=== PATIENT | male | born 1985 | race Caucasian/White ===

== ENCOUNTER 2017-01-31 12:21 | Emergency (ER) | payer OTHER ==
[~2017-01-31] VITALS: Ht 172.7 cm; Wt 111.5 kg
[2017-01-31 12:27] VITALS: Ht 172.7 cm; Wt 111.5 kg
[2017-01-31] MEDS ORDERED: OLAN10TA7 PO (12:45)
--- NOTE | 2017-01-31 12:48 | ERD ---
ER Documentation Chief Complaint Date/Time DATE: 01/31/17 TIME: 12:46 Chief Complaint hearing voices, paranoid "i feel like everyone is watching me" HPI 31-year-old male presents to the emergency department complaining of hallucinations. He states he has been on and off methamphetamine. His last use was approximately 10 days ago. He has been in and out of senior living. He denies suicidal or homicidal thoughts but continues to have paranoid delusions. He recognizes them as paranoid delusions. He has no medical complaints at this time. ROS All systems reviewed and are negative except as per history of present illness. Medications Home Meds Active Scripts Olanzapine* (Zyprexa*) 10 Mg Tablet, 10 MG PO DAILY, #30 TAB Prov:MERLIN HENSLEY 01/31/17 Allergies Allergies: Coded Allergies: No Known Allergy (Unverified , 01/31/17) FmHx No history of psychiatric disease Physical Exam Vitals Vital Signs Date Time Temp Pulse Resp B/P Pulse Ox O2 Delivery O2 Flow Rate FiO2 01/31/17 12:27 98.5 74 18 122/68 98 Physical Exam General: well developed, well nourished, in no distress. Neuro: Normal speech, gait, balance Psych: Patient is awake, alert, oriented. Patient has normal insight, and some judgment. Patient is expressing paranoid delusions, and auditory hallucinations , but no visual hallucinations. Patient denies suicidal or homicidal thoughts at this time. He has a linear thought process. Procedures/MDM Patient was taken to a room, seen and examined Medical decision makin-year-old male presents with what appears to be a psychosis comp located by ongoing drug use. At this time, patient shows no evidence of being admitted danger to himself or others. He has been offered voluntary psychiatric hospitalization and outpatient follow-up and seems appropriate for outpatient care at this time. Departure Diagnosis: Primary Impression: Psychosis Condition: Stable Patient Instructions: Psychosis Additional Instructions: Please follow up with the mental health urgent care center in [place] next to the [facility] MERLIN HENSLEY January 31, 2017 12:48
[2017-01-31] MEDS ORDERED: OLANZAPINE 5 MG TAB PO ONE (13:00)
== END 2017-01-31 13:27 | disposition home or self-care (01) ==
LOC: E/R 12:21
DX: F29 Unspecified psychosis not due to a substance or known physiological condition (principal)
CPT/HCPCS: Z7502; Z7610; 99283

== ENCOUNTER 2017-04-23 11:49 | Emergency (ER) | payer OTHER ==
[~2017-04-23] VITALS: Ht 188 cm; Wt 114.0 kg
[~2017-04-23 11:49] MED LIST: OLAN10TA7 PO
[2017-04-23 11:52] VITALS: Ht 188 cm; Wt 114.0 kg
[2017-04-23] MEDS ORDERED: IBUP-1542 PO (13:08)
--- NOTE | 2017-04-23 13:30 | ERD ---
ER Documentation Chief Complaint Date/Time DATE: 04/23/17 TIME: 13:28 Chief Complaint sore on lip and back of mouth for past 5 days HPI This is a 32-year-old male presents to the ER after he had some dental work on Tuesday he developed a sore on the right side of his inner cheek and the tip of his tongue. Patient states that the sores are painful. He denies any fevers or chills. He denies any dental pain. ROS 12 point review of systems was done, all negative except per HPI. Medications Home Meds Active Scripts Ibuprofen* (Motrin*) 600 Mg Tab, 600 MG PO Q6, #30 TAB Prov:NAZANINTARA Audrey 04/23/17 Olanzapine* (Zyprexa*) 10 Mg Tablet, 10 MG PO DAILY, #30 TAB Prov:MERLIN HENSLEY 01/31/17 Allergies Allergies: Coded Allergies: No Known Allergy (Unverified , 01/31/17) PMhx/Soc Medical and Surgical Hx: pt denies Medical Hx History of Surgery: Yes (CHOLECYSTECTOMY) Anesthesia Reaction: No Hx Neurological Disorder: No Hx Respiratory Disorders: No Hx Cardiac Disorders: No Hx Psychiatric Problems: Yes (HALLUCINATING, PARANOID) Hx Miscellaneous Medical Probl: No Hx Alcohol Use: No Hx Substance Use: No Hx Tobacco Use: No Smoking Status: Never smoker Physical Exam Vitals Vital Signs Date Time Temp Pulse Resp B/P Pulse Ox O2 Delivery O2 Flow Rate FiO2 04/23/17 11:52 97.0 73 18 125/72 98 Physical Exam GENERAL: The patient is well developed and appropriate for usual state of health , in no apparent distress. HEENT: Atraumatic. 2 aphthous ulcers in the mouth. CHEST: Clear to auscultation bilaterally. There are no rales, wheezes or rhonchi. HEART: Regular rate and rhythm. No murmurs, clicks, rubs or gallops. NEURO: Alert and oriented. Procedures/MDM This is a 32-year-old male presents to the ER with 2 sores in his mouth. Likely at this ulcers secondary to trauma that occurred when he had dental work. At this time patient is afebrile and well-appearing. I doubt infection, cellulitis, dental abscess, Lars's angina. Patient needs to follow-up with his primary care doctor within 1-2 days or return to ER sooner if symptoms worsen. My medical decision making was shared with the patient he understands and agrees with plan. Departure Diagnosis: Primary Impression: Sore in mouth Condition: Stable Patient Instructions: Aphthous Ulcer Referrals: [facility] (PCP) Additional Instructions: Call your primary care doctor TOMORROW for an appointment during the next 1-2 days.See the doctor sooner or return here if your condition worsens before your appointment time. TARA BACK Apr 23, 2017 13:30
== END 2017-04-23 13:20 | disposition home or self-care (01) ==
LOC: FTE 11:49
DX: K13.79 Other lesions of oral mucosa (principal)
CPT/HCPCS: 99283

== ENCOUNTER 2017-06-20 10:21 | Emergency (ER) | payer OTHER ==
[~2017-06-20] VITALS: Ht 175.3 cm; Wt 89.0 kg
[~2017-06-20 10:21] MED LIST changes: +IBUP-1542 PO
[2017-06-20 10:27] VITALS: Ht 175.3 cm; Wt 89.0 kg
--- NOTE | 2017-06-20 13:11 | ERD ---
ER Documentation Chief Complaint Date/Time DATE: 06/20/17 TIME: 13:08 Chief Complaint REFILL OF PSYCH MEDS, HX SCHIZOPHRENIA? HPI 32-year-old male with history of schizophrenia paranoid type, presents to the emergency department requesting a refill of his Risperdal. The patient has established mental health but his appointment is in 2 weeks. At this time he presents with his girlfriend and both denied current suicidal ideation or homicidal ideation. He status that occasionally he gets visual and auditory hallucinations but he is able to control the situation. Refers good compliance with medications no major side effects ROS All systems reviewed and are negative except as per history of present illness. Medications Home Meds Active Scripts Hydroxyzine Hcl* (Hydroxyzine Hcl*) 25 Mg Tablet, 25 MG PO QHS Y for INSOMNIA, # 30 TAB 3 Refills Prov:JESÚS DRAKE MD 06/20/17 Risperidone* (Risperdal*) 1 Mg Tablet, 1 MG PO BID for 30 Days, #60 TAB 2 Refills Prov:JESÚS DRAKE MD 06/20/17 Ibuprofen* (Motrin*) 600 Mg Tab, 600 MG PO Q6, #30 TAB Prov:TARA BACK 04/23/17 Olanzapine* (Zyprexa*) 10 Mg Tablet, 10 MG PO DAILY, #30 TAB Prov:MERLIN HENSLEY 01/31/17 Allergies Allergies: Coded Allergies: No Known Allergy (Unverified , 01/31/17) PMhx/Soc History of cholecystectomy. History of voluntary psych admissions. History of Surgery: Yes (CHOLECYSTECTOMY) Anesthesia Reaction: No Hx Neurological Disorder: No Hx Respiratory Disorders: No Hx Cardiac Disorders: No Hx Psychiatric Problems: Yes (HALLUCINATING, PARANOID) Hx Miscellaneous Medical Probl: No Hx Alcohol Use: No Hx Substance Use: No Hx Tobacco Use: No Smoking Status: Never smoker FmHx The patient denies history of mental health problems in his family Physical Exam Vitals Vital Signs Date Time Temp Pulse Resp B/P Pulse Ox O2 Delivery O2 Flow Rate FiO2 06/20/17 10:27 98.1 73 18 137/70 99 Physical Exam Const: [] Head: Atraumatic Resp: Clear to auscultation bilaterally Cardio: Regular rate and rhythm, no murmurs Neur: Awake and alert Psych: Normal Mood and Affect NO SI/HI Procedures/MDM Medical decision making: This is a 32-year-old patient with a history of schizophrenia, on mental health management and currently taking Risperdal, refers feeling okay his next appointment is in 2 weeks, he needs a refill for his medications. At this time no suicidal or homicidal ideation. We recommend a follow-up appointment in 2-4 days Departure Diagnosis: Primary Impression: Schizo-affective type schizophrenia, chronic state Condition: Stable JESÚS DRAKE MD Jun 20, 2017 13:11
[2017-06-20] MEDS ORDERED: RIS1 PO (13:14)
[2017-06-20] MEDS ORDERED: HYDR-3011 PO (13:14)
[2017-06-20 13:57] VITALS: BP 130/71; PULSE 79; RESP 18; TEMP 98.5
== END 2017-06-20 13:58 | disposition home or self-care (01) ==
LOC: FTE 10:21
DX: F25.9 Schizoaffective disorder, unspecified (principal)
CPT/HCPCS: 99281

== ENCOUNTER 2019-03-22 19:33 | Emergency (ER) | payer OTHER ==
[~2019-03-22] VITALS: Ht 188 cm; Wt 125.0 kg
[~2019-03-22 19:33] MED LIST changes: +HYDR-843 PO; +RISP-7 PO
[2019-03-22 19:43] VITALS: BP 130/64; PULSE 74; RESP 18; Ht 188 cm; Wt 125.0 kg
--- NOTE | 2019-03-22 19:52 | ERD ---
ER Documentation Chief Complaint Chief Complaint rash/possible insect bites to right lower leg x 4 days HPI 34-year-old male, with a history of his schizophrenia, presents emergency department, complaining of bilateral lower extremity insect bites for 4 days, after spending some time outdoor. The patient denies fever, no chills, no local erythema, warmth or tenderness. ROS All systems reviewed and are negative except as per history of present illness. Medications Home Meds Active Scripts Cetirizine Hcl* (Zyrtec*) 10 Mg Capsule, 10 MG PO DAILY, #10 TAB.CHEW Prov:JESÚS DRAKE MD 03/22/19 Triamcinolone Acetonide (Triamcinolone Acetonide) 0.5% - 15 Gm Oint..gm., 1 APPLIC TOP BID for 7 Days, #1 TUB Prov:JESÚS DRAKE MD 03/22/19 Hydroxyzine Hcl* (Hydroxyzine Hcl*) 25 Mg Tablet, 25 MG PO QHS PRN for INSOMNIA, #30 TAB 3 Refills Prov:JESÚS DRAKE MD 06/20/17 Risperidone* (Risperdal*) 1 Mg Tablet, 1 MG PO BID for 30 Days, #60 TAB 2 Refills Prov:JESÚS DRAKE MD 06/20/17 Ibuprofen* (Motrin*) 600 Mg Tab, 600 MG PO Q6, #30 TAB Prov:TARA BACK 04/23/17 Olanzapine* (Zyprexa*) 10 Mg Tablet, 10 MG PO DAILY, #30 TAB Prov:MERLIN HENSLEY 01/31/17 Allergies Allergies: Coded Allergies: No Known Allergy (Unverified , 01/31/17) PMhx/Soc History of Surgery: Yes (CHOLECYSTECTOMY) Anesthesia Reaction: No Hx Neurological Disorder: No Hx Respiratory Disorders: No Hx Cardiac Disorders: No Hx Psychiatric Problems: Yes (HALLUCINATING, PARANOID) Hx Miscellaneous Medical Probl: No Hx Alcohol Use: No Hx Substance Use: No Hx Tobacco Use: No FmHx Family History: No diabetes, No coronary disease Physical Exam Vitals Vital Signs Date Temp Pulse Resp B/P (MAP) Pulse Ox O2 O2 Flow FiO2 Time Delivery Rate 03/22/19 98.6 74 18 130/64 98 19:43 (86) Physical Exam Patient alert, oriented, vital signs stable. HEAD: Normocephalic, atraumatic. EYES: PERRLA, EOMI, Sclera and conjunctiva appear normal. NOSE: Clear and patent nostrils. EARS: Canals clear, tympanic membranes WNL. MOUTH: normal lips and tongue, no oral lesions. THROAT: Normal oropharynx, no tonsillar exudates. NECK: Supple, No lymphadenopathy. Full ROM without pain or tenderness. HEART: RRR, no rubs, murmurs, clicks or gallops. LUNGS: Clear to auscultation. ABDOMEN: Soft, non-tender without masses or hepatosplenomegaly. EXTREMITIES: Multiple, well-defined, erythematous papules, bilaterally, without signs of infection. No edema bilaterally. BACK: Full ROM, no deformity, normal back exam NEURO: Cranial nerves grossly intact, no motor or sensory deficit SKIN: No rashes, no petechia. Procedures/MDM Vital signs stable, Differential diagnosis include but not limited to: Dermatitis, scabies, allergic reaction, cellulitis, erysipelas, shingles, abscess. Low suspicion for acute systemic infectious process. Physical examination and clinical presentation consistent most likely with insect bites without evidence of cellulitis or abscess formation. During the ED course the patient remained stable, no new complaints. Clinical impression discussed with mother who agrees with management. The patient is stable to be treated outpatient and will be discharged home. The patient was instructed to follow up with the primary care provider in the next 48h. If symptoms persist, worsen or new symptoms develop, then patient should return to the ED immediately. Instructions explained and given directly by me to the patient and relatives with acknowledgment and demonstrated understanding. Disclaimer: Inadvertent spelling and grammatical errors are likely due to EHR/dictation software use and do not reflect on the overall quality of patient care. Also, please note that the electronic time recorded on this note does not necessarily reflect the actual time of the patient encounter. Departure Diagnosis: Primary Impression: Insect bite Condition: Stable Additional Instructions: Thank you very much for allowing us to participate in your care. Your health and safety is our top priority at [facility]. The evaluation in the emergency department has been done to rule out an acute emergency. Chronic, [id number] conditions may have not been evaluated; therefore, you need to follow up with a primary care provider in the next 48h. If symptoms persist, worsen or new symptoms develop, then patient should return to the ED immediately. Call your primary care doctor TOMORROW for an appointment during the next 2-4 days and bring all the information provided. Have prescriptions filled and follow precisely the directions on the label. If the symptoms get worse and your provider is unavailable, return to the Emergency Department immediately. JESÚS DRAKE MD Mar 22, 2019 19:52
[2019-03-22] MEDS ORDERED: TRIA15OI9 TOP (19:54)
[2019-03-22] MEDS ORDERED: CETI10CA PO (19:54)
== END 2019-03-23 19:55 | disposition home or self-care (01) ==
LOC: E/R 19:33
DX: S80.861A Insect bite (nonvenomous), right lower leg, initial encounter (principal); S80.862A Insect bite (nonvenomous), left lower leg, initial encounter; W57.XXXA Bitten or stung by nonvenomous insect and other nonvenomous arthropods, initial encounter; Y92.9 Unspecified place or not applicable
CPT/HCPCS: 99283